=== PATIENT | female | born 2000 | race African-American/Black ===

== ENCOUNTER 2022-01-06 15:55 | Emergency (ER) | payer OTHER ==
[~2022-01-06] VITALS: Ht 182.9 cm; Wt 139.6 kg
--- NOTE | 2022-01-06 16:55 | PHYS DOC ---
Past History Past Surgical History: No Surgical History Alcohol Use: None General Adult EDM: Chief Complaint: ABDOMINAL PAIN IN HPI: HPI: Patient is a 21-year-old female who presents with lower abdominal pain and back pain. Patient reports she is 12 weeks . LMP was 10/02/2021. Patient is G2, P1. Patient is also reporting nausea and vomiting. Patient denies vaginal bleeding. No abnormal odor. Patient does report an increase in discharge. Denies fever. Denies vaginal pain or itching. History of depression. Review of Systems: Review of Systems: ROS At least 10 ROS systems have been reviewed and are negative except as documented in the HPI. General: Negative except as outlined in HPI above. Skin: Negative except as outlined in HPI above. HEENT: Negative except as outlined in HPI above. Neck: Negative except as outlined in HPI above. Respiratory: Negative except as outlined in HPI above.. Cardiovascular: Negative except as outlined in HPI above. Abdomen: Negative except as outlined in HPI above. : Negative except as outlined in HPI above. Back/MSK: Negative except as outlined in HPI above. Neuro: Negative except as outlined in HPI above. Psych: Negative except as outlined in HPI above. Current Medications: Current Meds: Current Medications Medications (Trade) Dose Ordered Sig/Gopal Start Time Stop Time Status Last Admin Dose Admin Acetaminophen (Tylenol) 500 mg 1X ONCE 01/06/22 16:45 01/06/22 16:46 UNV Ondansetron HCl (Zofran) 4 mg 1X ONCE 01/06/22 16:45 01/06/22 16:46 UNV Sodium Chloride 1,000 ml @ 1,000 mls/hr 1X ONCE 01/06/22 16:45 01/06/22 17:44 UNV Allergies: Allergies: Allergies Coded Allergies Type Severity Reaction Last Updated Verified No Known Drug Allergies 01/06/22 No Physical Exam: PE: Constitutional: Well developed, well nourished, no acute distress, non-toxic appearance. [] HENT: bilateral external ears normal, oropharynx moist, no oral exudates, nose normal. [] Eyes: PERRLA, conjunctiva normal, no discharge. [] Neck: Normal range of motion, no tenderness Cardiovascular:Heart rate regular rhythm, no murmur [] Lungs & Thorax: Bilateral breath sounds clear to auscultation [] Abdomen/vaginal: Bowel sounds normal, soft, no tenderness, no masses. Vaginal discharge, no odor Skin: Warm, dry, no erythema, no rash. [] Back: No tenderness, no CVA tenderness. [] Extremities: No tenderness, no cyanosis, no clubbing, ROM intact, no edema. [] Neurologic: Alert and oriented X 3, normal motor function, normal sensory function, no focal deficits noted. [] Psychologic: Affect normal, judgement normal, mood normal. [] Current Patient Data: Vital Signs: Vital Signs Date Time Temp Pulse Resp B/P (MAP) Pulse Ox O2 Delivery O2 Flow Rate FiO2 01/06/22 16:12 98.3 106 18 127/97 (107) 98 Room Air EKG: EKG: [] Radiology/Procedures: Radiology/Procedures: []Exam: Ultrasound OB less than 14 weeks Indication: Lower abdominal pain and Technique: Real-time grayscale and color Doppler images of the pelvis were obtained by the department remote broadcast engineer. Comparisons: None FINDINGS: Uterus measures 11.8 x 10.7 x 10.0 cm. Within the endometrium there is a gestational sac which appears flattened. There is internal pole. [place]- rump length is measured at 6.8 cm corresponding to 13 weeks 0 days. heart rate is 163 bpm. measurements were performed, however given gestational age are not being used for dating. Measurements as follows: BPD: 2.05 cm corresponding to 13 weeks 2 days Head circumference: 8.04 cm corresponding to 13 weeks 3 days Abdominal circumference: 7.15 cm corresponding to 13 weeks 5 days Femur length: 0.89 cm corresponding to 12 weeks 5 days LMP: 09/08/2021 Estimated due date by LMP: 06/15/2022 Estimated due date by prior dating ultrasound: 07/17/2022 Estimated due date by current ultrasound: 07/12/2022 Gestational age by current ultrasound: 13 weeks 0 days Gestational age by prior ultrasound: 12 weeks 4 days Right ovary measures 4.5 x 2.6 x 1.6 cm. Left ovary measures 3.7 x 2.1 x 2.0 cm Vascular flow identified the ovaries bilaterally. No free fluid identified in the pelvis IMPRESSION: 1. Single live intrauterine gestation of 12 weeks 4 days by prior dating ultrasound. 2. Somewhat flattened appearance of the gestational sac with normal heart tones. This is nonspecific and may be normal. 3. Dedicated survey is recommended to 18-20 weeks gestation. Electronically signed by: Donavon Jarvis MD (01/06/2022 7:39 PM) [facility] Heart Score: C/O Chest Pain: No Risk Factors: Risk Factors: DM, Current or recent (<one month) smoker, HTN, HLP, family history of CAD, obesity. Risk Scores: Score 0 - 3: 2.5% MACE over next 6 weeks - Discharge Home Score 4 - 6: 20.3% MACE over next 6 weeks - Admit for Clinical Observation Score 7 - 10: 72.7% MACE over next 6 weeks - Early Invasive Strategies Course & Med Decision Making: Course & Med Decision Making Pertinent Labs and Imaging studies reviewed. (See chart for details) [] 21-year-old female presents with lower abdominal pain and back pain. LMP, 10/02/2021. G2, P1. Denies vaginal bleeding. Patient has been receiving care. Work-up in ER consisted of EKG, labs, urinalysis, transvaginal ultrasound. All labs unremarkable. Ultrasound shows Single live intrauterine gestation of 1 2 weeks 4 days by prior dating ultrasound. Urine is positive for infection. Sending patient home on antibiotic to treat UTI. Patient also sent home with Zofran to help with nausea. Patient to follow-up with OB early next week for further management. Discussed return precautions. Dragon Disclaimer: Yoly Disclaimer: This electronic medical record was generated, in whole or in part, using a voice recognition dictation system. Departure Departure: Impression: Primary Impression: Nausea and vomiting during Disposition: 01 HOME / SELF CARE / HOMELESS Condition: STABLE Referrals: PCP,UNKNOWN (PCP) Patient Instructions: Nausea and Vomiting, [id number] Additional Instructions: You are seen the emergency room for nausea and vomiting during . Your ultrasound was unremarkable. Your urine did show signs of infection. I will send you home with a prescription for an antibiotic to treat urinary tract infec tion. Also nausea medication. Return emergency room with worsening symptoms or concerns. EMERGENCY DEPARTMENT GENERAL DISCHARGE INSTRUCTIONS Thank you for coming to [facility] (ED) today and trusting us with you care. We trust that you had a positivie experience in our Emergency Department. If you wish to speak to the department management, you may call the director at [phone]. YOUR FOLLOW UP INSTRUCTIONS ARE FOLLOWS: 1. Do you have a private Doctor? If you do not have a private doctor, please ask for a resource list of physicians or clinics that may be able to assist you with follow up care. 2. The Emergency Physician has interpreted your x-rays. The X-Ray specialist will also review them. If there is a change in the findings, you will be notified in 48 hours when at all possible. 3. A lab test or culture has been done, your results will be reviewed and you will be notified if you need a change in treatment. ADDITIONAL INSTRUCTIONS AND INFORMATION: 1. Your care today has been supervised by a physician who is specially trained in emergency care. Many problems require more than one evaluation for a complete diagnosis and treatment. We recommend that you schedule your follow up appointment as recommended to ensure complete treatment of you illness or injury. If you are unable to obtain follow up care and continue to have a problem, or if your condition worsens, we recommend that you return to the ED. 2. We are not able to safely determine your condition over the phone nor are we able to give sound medical advice over the phone. For these safety reasons, if you call for medical advice we will ask you to come to the ED for further evaluation. 3. If you have any questions regarding these discharge instructions please call the ED at [phone]. SAFETY INFORMATION: In the interest of safety, wellness, and injury prevention; we encourage you to wear your sealbelt, if you smoke; quite smoking, and we encourage family to use a protective helmet for bicycling and other sporting events that present an increased risk for head injury. IF YOUR SYMPTOMS WORSEN OR NEW SYMPTOMS DEVELOP, OR YOU HAVE CONCERNS ABOUT YOUR CONDITION; OR IF YOUR CONDITION WORSENS WHILE YOU ARE WAITING FOR YOUR FOLLOW UP APPOI NTMENT; EITHER CONTACT YOUR PRIMARY CARE DOCTOR, THE PHYSICIAN WHOSE NAME AND NUMBER YOU WERE GIVEN, OR RETURN TO THE ED IMMEDIATELY. Scripts Ondansetron (ONDANSETRON ODT) 4 Mg Tab.rapdis 4 MG PO Q8HRS for nausea for 7 Days, #21 TAB Prov: WINNIE GAMEZ APRN 01/06/22 Cephalexin (CEPHALEXIN) 500 Mg Tablet 1 TAB PO BID for uti for 5 Days, #10 TAB Prov: WINNIE GAMEZ APRN 01/06/22 WINNIE GAMEZ APRN Jan 06, 2022 16:55
[2022-01-06 17:00] LABS: U PREG PATIENT POSITIVE (NEG)
[2022-01-06] MEDS ORDERED: ONDANSETRON PF 4 MG/2 ML VIAL. IVP ONE (17:00)
[2022-01-06] MEDS ORDERED: ACETAMINOPHEN 500 MG TABLET PO ONE (17:00)
[2022-01-06] MEDS ORDERED: IV NORMAL SALINE 1,000ML 1,000 ML IV ONE (17:00)
[2022-01-06 17:06] LABS: BASO % 0 % (0-3); EOS # 0.1 x10^3/uL (0.0-0.7); EOS % 1 % (0-3); HEMATOCRIT 39.3 % (36.0-47.0); HEMOGLOBIN 12.9 g/dL (12.0-15.5); LYMPH # 1.9 x10^3/uL (1.0-4.8); LYMPH % 18 % (24-48); MEAN CORPUSCULAR HEMOGLOBIN 29 pg (25-35); MEAN CORPUSCULAR HGB CONC 33 g/dL (31-37); MEAN CORPUSCULAR VOLUME 87 fL (79-100); MONO # 0.7 x10^3/uL (0.0-1.1); MONO % 7 % (0-9); NEUT # 7.9 x10^3uL (1.8-7.7); NEUT % 74 % (31-73); PLATELET COUNT 216 x10^3/uL (140-400); RED BLOOD COUNT 4.52 x10^6/uL (3.50-5.40); RED CELL DISTRIBUTION WIDTH 14.7 % (11.5-14.5); WHITE BLOOD COUNT 10.6 x10^3/uL (4.0-11.0)
[2022-01-06 17:14] LABS: CLARITY,URINE CLOUDY; COLOR,URINE YELLOW; GLUCOSE,URINE NEG (NEG)
[2022-01-06 17:15] LABS: BACTERIA,URINE MOD /HPF (0-FEW); NITRITE,URINE NEG (NEG); SQUAMOUS EPITHELIAL CELL,UR MANY /LPF; UROBILINOGEN,URINE 0.2 mg/dL (0.2 mg/dL)
[2022-01-06 17:17] LABS: CALCIUM 9.4 mg/dL (8.5-10.1); CREATININE 0.6 mg/dL (0.6-1.0); GFR 155.8; POTASSIUM 3.5 mmol/L (3.5-5.1)
--- NOTE | 2022-01-06 19:42 | RAD ---
Exam: Ultrasound OB less than 14 weeks Indication: Lower abdominal pain and Technique: Real-time grayscale and color Doppler images of the pelvis were obtained by the department batch freezer operator. Comparisons: None FINDINGS: Uterus measures 11.8 x 10.7 x 10.0 cm. Within the endometrium there is a gestational sac which appear s flattened. There is internal pole. [place]-rump length is measured at 6.8 cm corresponding to 1 3 weeks 0 days. heart rate is 163 bpm. measurements were performed, however given gestational age are not being used for dating. Measu rements as follows: BPD: 2.05 cm corresponding to 13 weeks 2 days Head circumference: 8.04 cm corresponding to 13 weeks 3 days Abdominal circumference: 7.15 cm corresponding to 13 weeks 5 days Femur length: 0.89 cm corresponding to 12 weeks 5 days LMP: 09/08/2021 Estimated due date by LMP: 06/15/2022 Estimated due date by prior dating ultrasound: 07/17/2022 Estimated due date by current ultrasound: 07/12/2022 Gestational age by current ultrasound: 13 weeks 0 days Gestational age by prior ultrasound: 12 weeks 4 days Right ovary measures 4.5 x 2.6 x 1.6 cm. Left ovary measures 3.7 x 2.1 x 2.0 cm Vascular flow identified the ovaries bilaterally. No free fluid identified in the pelvis IMPRESSION: 1. Single live intrauterine gestation of 12 weeks 4 days by prior dating ultrasound. 2. Somewhat flattened appearance of the gestational sac with normal heart tones. This is nonsp ecific and may be normal. 3. Dedicated survey is recommended to 18-20 weeks gestation. Electronically signed by: Donavon Jarvis MD (01/06/2022 7:39 PM) [facility]
[2022-01-06] MEDS ORDERED: ONDA4TAB12 PO (19:57)
[2022-01-06] MEDS ORDERED: CEPH500T PO (19:57)
[2022-01-06] MEDS ORDERED: CEPHALEXIN 250 MG CAPSULE PO ONE (20:00)
[2022-01-06 20:20] VITALS: BP 132/76
== END 2022-01-06 20:20 | disposition home or self-care (01) ==
LOC: ER 15:55
DX: O21.9 Vomiting of pregnancy, unspecified (principal); R10.30 Lower abdominal pain, unspecified; Z3A.12 12 weeks gestation of pregnancy
CPT/HCPCS: 36415; 76801; 80048; 81001; 81025; 84702; 85025; 87086; 96361; 96374; 99284; J2405; J7030; Q0111